=== PATIENT | female | born 1990 | race Caucasian/White ===

== ENCOUNTER 2017-09-11 09:08 | Inpatient (IN) ==
[2017-09-11] MEDS ORDERED: Piperacillin/Tazobactam 3.375 GM in D5% in Water (Mini-Bag+) 100 ML IVPB SCH (12:00)
[2017-09-11] MEDS ORDERED: Vancomycin 0 MG in D5% in Water 250 ML IVPB SCH (12:00)
--- NOTE | 2017-09-11 12:06 | Internal Med History&Physical ---
Date of Encounter: 09/11/17 Time of Encounter: 12:03 Assessment and Plan (1) Periorbital cellulitis of right eye Current visit: Yes Status: Acute Imaging shows no affection of the orbit. Vision is intact. on examination there is no crusting and patient can count fingers. Continue vancomycin and zosyn. Also will give decadron 10 mg q 8 because of degree of edema. Discussed with patient in case any visual symptoms or signs of occular infection she will transferred. Currently no signs of endophthalmitis. (2) HCV (hepatitis C virus) Current visit: Yes Status: Acute Due to IV drug abuse. Qualifiers: Qualified Code(s): B19.20 - Unspecified viral hepatitis C without hepatic coma (3) IVDA (intravenous drug abuse) complicating Current visit: Yes Status: Acute Injects heroin twice weekly (4) Cellulitis and abscess of face Current visit: No Status: Acute Vanc zosyn and decadron. Discussed with ENT because of abscess formation on CT. Internal Medicine - H&P: HPI Chief complaint: cheeck pain and swelling History of present illness: Ms. Dee Herron is a 26 year old female presents to the emergency room yesterday with the main complain of cheek pain and swelling. 2 days ago patient started noticing a pimple on her right cheek. She presented to [facility] emergency room and this was incised and drained and she was discharged home on Bactrim and Keflex which she started yesterday. She continues to notice progressive increase in redness swelling of the right cheek which started involving her right eye which is currently closed from the degree of edema. She still able to see with active opening of her eye at least finger counting. There is no obvious crusting in the sclera. No eye pain or proptosis. Patient presented again to [facility] emergency room yesterday and was hospitalized started on IV antibiotics. Her facial swelling has not improved so she was transferred to our facility. Past Med Surg Social Fam HX - Past Medical History Medical history: no medical history Psychiatric history: no psych history - Past Surgical History Surgical History: - Social History Smoking Status: Current every day smoker Smokeless Tobacco Status: No Alcohol use: occasionally Drug use: opiates, methamphetamine, IV Drug Use - Family History Mother Hx Family Respiratory Disorders: Yes (Asthma) Father Hx Family Cardiac Disorders: Yes (HTN) Internal Medicine - H&P: Meds Cephalexin [Keflex] 500 mg PO TID #21 capsule 09/09/17 [Rx] HYDROcodone/Acet 5/325 mg [[place] 5-325 mg] 1 tab PO Q4H PRN #12 tab 09/09/17 [Rx ] Sulfamethoxazole/Trimeth DS [Bactrim DS] 1 each PO BID #14 tablet 09/09/17 [Rx] 3 Allergy/AdvReac Type Severity Reaction Status Date / Time No Known Allergies Allergy Verified 09/10/17 23:11 All Systems PM: A 10-system review of systems was performed and is negative for pertinent findings except as documented above in the HPI. Review of systems: 10 point review of systems is negative except for HPI - Constitutional Vitals: Temp Pulse Resp BP Pulse Ox 98.3 F 100 16 132/88 97 09/11/17 11:52 09/11/17 11:52 09/11/17 11:52 09/11/17 11:52 09/11/17 11:52 Exam: Gen.: patient is alert oriented times 3 not in distress. Head and neck: Swlling redness, warmth tenderness in the right maxillary and periorbital area Eye: Swollen eye lids, no crusting. Intact vision. BP 132/88, pulse 100, 97% on RA
[2017-09-11 12:26] LABS: Basophils % 0.3 %; Eosinophils # 0.2 K/mcL (0.0-0.6); Eosinophils % 1.7 %; Hemoglobin 11.7 g/dL (11.5-15.4); Immature Granulocytes % 0.5 % (0-4); Lymphocytes # 2.6 K/mcL (0.6-4.6); Lymphocytes % 22.2 %; Mean Corpuscular HGB Conc 31.6 g/dL (31.6-35.5); Mean Corpuscular Hemoglobin 28.7 pg (28.0-33.3); Mean Corpuscular Volume 90.9 fL (83.0-100.0); Mean Platelet Volume 9.9 fL (9.4-12.4); Monocytes # 1.3 K/mcL (0.0-1.3); Monocytes % 10.7 %; Neutrophils # 7.6 K/mcL (1.6-8.9); Platelet Count 258 K/mcL (140-400); Red Blood Count 4.07 M/mcL (3.82-4.97); Red Cell Distribution Width 13.4 % (11.5-14.5); Segmented Neutrophils % 64.6 %
[2017-09-11] MEDS ORDERED: Lidocaine/EPI 1:100k 1% 20 ML VIAL INFILT ONE (12:47)
[2017-09-11 12:50] LABS: Alanine Aminotransferase 7 Units/L (7-52); Albumin 3.7 g/dL (3.5-5.7); Albumin/Globulin Ratio 1.1 (1.1-2.2); Alkaline Phosphatase 57 Units/L (34-104); Aspartate Amino Transferase 9 Units/L (13-39); BUN/Creatinine Ratio 11 (6-26); Bilirubin,Total 0.3 mg/dL (0.3-1.0); Blood Urea Nitrogen 6 mg/dL (6-20); C-Reactive Protein 54 mg/L (Less than 10); Calcium 9.1 mg/dL (8.6-10.3); Carbon Dioxide 26 mEq/L (23-29); Chloride 105 mEq/L (98-107); Globulin 3.5 g/dL (2.4-3.5); Glucose 104 mg/dL (70-105); Osmolality,Calculated 282 (280-300); Sodium 137 mEq/L (136-145); Total Protein 7.2 g/dL (6.4-8.9); eGFR For African Americans > 60 (> 60); eGFR For Non-African Americans > 60 (> 60)
[2017-09-11] MEDS ORDERED: Vancomycin 750 MG in D5% in Water 250 ML IVPB SCH (13:00)
[2017-09-11] MEDS: Dexamethasone 10 MG/ML VIAL IVP SCH ×2 (13:58→22:17)
[2017-09-11] MEDS: 0.9 % Sodium Chloride 1,000 ML IVC SCH (13:58)
[2017-09-11] MEDS: *HR* Morphine 2 MG/ML SYRINGE IVP PRN ×2 (14:02→22:18)
[2017-09-11] MEDS: Vancomycin 1,000 MG in D5% in Water 250 ML IVPB SCH (14:05)
[2017-09-11] MEDS: Piperacillin/Tazobactam 3.375 GM/200 ML BAG IVPB SCH ×2 (14:10→22:17)
--- NOTE | 2017-09-11 14:27 | ENT - Consult Note ---
Date of Encounter: 09/11/17 Time of Encounter: 14:24 Assessment and Plan (1) Facial abscess Current Visit: No Status: Acute s/p bedside I&D today, tolerated well, no complications. Will remove packing over next few days. Agree with IV abx and steroids Cultures pending Gentamicin ointment topical added. (2) Periorbital cellulitis of right eye Current Visit: Yes Status: Acute as above, will likely improve once IV therapies have a chance to work. No concerning intraocular eye involvement at this time. History of Present Illness Consult date: 09/11/17 Reason for ENT Consult: other (facial abscess) History of present illness: Pt is a 26 yo female IVDU who reports a right malar acne site that turned into a facial swelling over the last few days. She was treated with po bactrim and I& D at [facility] with subsequent progression of her swelling to the point that she now has periorbital edema closing her eye. She denies vision changes once the eye is opened and she has FROM of EOMs. Denies recent sinus infection or fever. Admits to prior cellulitis on her arm before, denies MRSA infections. Past Med Surg Social Fam HX - Past Medical History Medical history: no medical history Psychiatric history: no psych history - Past Surgical History Surgical History: - Social History Smoking Status: Current every day smoker Smokeless Tobacco Status: No Alcohol use: occasionally Drug use: opiates, methamphetamine, IV Drug Use - Family History Mother Hx Family Respiratory Disorders: Yes (Asthma) Father Hx Family Cardiac Disorders: Yes (HTN) Medications and Allergies Cephalexin [Keflex] 500 mg PO TID #21 capsule 09/09/17 [Rx] HYDROcodone/Acet 5/325 mg [[place] 5-325 mg] 1 tab PO Q4H PRN #12 tab 09/09/17 [Rx ] Sulfamethoxazole/Trimeth DS [Bactrim DS] 1 each PO BID #14 tablet 09/09/17 [Rx] 3 Allergy/AdvReac Type Severity Reaction Status Date / Time No Known Allergies Allergy Verified 09/10/17 23:11 ENT - ROS All systems PM: reviewed and no additional remarkable complaints except as stated ENT Exam Initial Vital Signs Temp Pulse Resp BP Pulse Ox 98.3 F 100 16 132/88 97 09/11/17 11:52 09/11/17 11:52 09/11/17 11:52 09/11/17 11:52 09/11/17 11:52 - General physical appearance well developed, well nourished, no distress - Eyes other (right eye periobital edema closing the eye. EOMS intact. Vision intact. ) - ENT normal pinna, normal nares, normal mucosa, Other (right facial malar swelling with purulent drainage from site of prior I&D with surrounding induration. cellulitis extends to eye. ) - Neck no masses, no bruits, no lymphadectomy - Respiratory normal expansion, normal respiratory effort - Abdomen Abdomen: no distended - Neurologic CN 2-12 grossly intact, normal coordination, normal sensation - Musculoskeletal normal gait, normal posture - Psychiatric oriented to time, oriented to person, oriented to place - Additional Findings Procedure note: Procedure: Facial abscess incision and drainage Preop dx: right facial abscess Postop dx: same Anesthesia: 2ml of 1% lidocaine, with 1:100,000 epi Procedure: Consent was obtained, the area was cleaned with betadine. Local anesthestic was injected with a 25g needle. I used a hemostat to open through the site of prior I&D. Purulence was quickly identified which I cultured. The loculations were broken up with a hemostat. 1/2'' packing gauze was then placed into the abcess cavity and a clean dressing was placed. She tolerated this well and there were no complications. Exam Initial Vital Signs Temp Pulse Resp BP Pulse Ox 98.3 F 100 16 132/88 97 09/11/17 11:52 09/11/17 11:52 09/11/17 11:52 09/11/17 11:52 09/11/17 11:52 Results - Labs 09/11/17 12:15 09/11/17 12:15 Abnormal lab results WBC 11.8 K/mcL (4.3-11.1) H 09/11/17 12:15 ESR 51 mm/hr (0-15) H 09/11/17 12:15 Creatinine 0.56 mg/dL (0.60-1.20) L 09/11/17 12:15 AST 9 Units/L (13-39) L 09/11/17 12:15 C-Reactive Protein 54 mg/L (Less than 10) H 09/11/17 12:15 Diabetes panel 09/11/17 Range/Units 12:15 Sodium 137 (136-145) mEq/L Potassium 4.0 D (3.5-5.1) mEq/L Chloride 105 (98-107) mEq/L Carbon Dioxide 26 (23-29) mEq/L BUN 6 (6-20) mg/dL Creatinine 0.56 L (0.60-1.20) mg/dL Glucose 104 (70-105) mg/dL Calcium 9.1 (8.6-10.3) mg/dL AST 9 L (13-39) Units/L ALT 7 (7-52) Units/L Alkaline Phosphatase 57 (34-104) Units/L Albumin 3.7 (3.5-5.7) g/dL Calcium panel 09/11/17 Range/Units 12:15 Calcium 9.1 (8.6-10.3) mg/dL Albumin 3.7 (3.5-5.7) g/dL Pituitary panel 09/11/17 Range/Units 12:15 Sodium 137 (136-145) mEq/L Potassium 4.0 D (3.5-5.1) mEq/L Chloride 105 (98-107) mEq/L Carbon Dioxide 26 (23-29) mEq/L BUN 6 (6-20) mg/dL Creatinine 0.56 L (0.60-1.20) mg/dL Glucose 104 (70-105) mg/dL Calcium 9.1 (8.6-10.3) mg/dL Adrenal panel 09/11/17 Range/Units 12:15 Sodium 137 (136-145) mEq/L Potassium 4.0 D (3.5-5.1) mEq/L Chloride 105 (98-107) mEq/L Carbon Dioxide 26 (23-29) mEq/L BUN 6 (6-20) mg/dL Creatinine 0.56 L (0.60-1.20) mg/dL Glucose 104 (70-105) mg/dL Calcium 9.1 (8.6-10.3) mg/dL Total Bilirubin 0.3 (0.3-1.0) mg/dL AST 9 L (13-39) Units/L ALT 7 (7-52) Units/L Alkaline Phosphatase 57 (34-104) Units/L Albumin 3.7 (3.5-5.7) g/dL All other labs normal. Consult Discharge Plan - Plan Referrals: NONE,PCP [Primary Care Provider] -
[2017-09-11] MEDS ORDERED: Aminoglycoside Consult 1 EACH MC ONE (14:49)
[2017-09-11] MEDS: Gentamicin Oint 15 GM TUBE TP SCH (22:18)
[2017-09-12] MEDS: Vancomycin 1,000 MG in D5% in Water 250 ML IVPB SCH (02:28)
[2017-09-12] MEDS: 0.9 % Sodium Chloride 1,000 ML IVC SCH (02:28)
[2017-09-12] MEDS: Piperacillin/Tazobactam 3.375 GM/200 ML BAG IVPB SCH (04:58)
[2017-09-12] MEDS: Dexamethasone 10 MG/ML VIAL IVP SCH (04:59)
[2017-09-12] MEDS: Gentamicin Oint 15 GM TUBE TP SCH (09:42)
--- NOTE | 2017-09-12 11:18 | ENT - Progress Note ---
Date of Encounter: 09/12/17 Time of Encounter: 11:16 - Assessment and Plan (1) Facial abscess Current Visit: No Status: Acute s/p bedside I&D POD#1, improved exam today. Facial swelling and induration present but improved, better eye opening today. No visual complaints. Partial packing removal today She needs at least one more day of IV therapies and we can remove the rest of her packing tomorrow. Cultures pending Continue Gentamicin ointment topical added. She is an IVDU with social concerns of her living situation. She is at high risk to leave AMA. If she does decide to leave AMA, recommend Bactrim DS bid or Clindamyin 600 tid po x 14 days. She says she has some bactrim and Keflex at home, which is reasonable pending cultures are not back. She can continue topical gentamicin at home too. (2) Periorbital cellulitis of right eye Current Visit: Yes Status: Acute periorbital edema still present but improved. Continue IV therapies Subjective Patient reports: no new complaints, pain is less, other (Pt reports improved facial swelling, better eye opening, decreased facial pain and tightness. She still has moderate periorbital swelling but can open her eye much better today and has no visual complaints. ) Objective Initial Vital Signs Temp Pulse Resp BP Pulse Ox 98.3 F 100 16 132/88 97 09/11/17 11:52 09/11/17 11:52 09/11/17 11:52 09/11/17 11:52 09/11/17 11:52 - General physical appearance well developed, well nourished, no distress - Eyes other (improved eye opening, but still with moderate periorbital edema. FROM of EOMs, vision is intact, no diplopia) - ENT normal pinna, normal nares, normal mucosa, Other (improved right malar swelling and induration, but still present. Partial packing removed with purulence still within the wound.) - Neck no masses, no bruits, no lymphadectomy - Respiratory normal expansion, normal respiratory effort - Abdomen no distended - Integumentary no rash, no growths - Neurologic CN 2-12 grossly intact, normal coordination, normal sensation - Musculoskeletal normal gait, normal posture - Psychiatric oriented to time, oriented to person, oriented to place - Labs 09/11/17 12:15 09/11/17 12:15 Diabetes panel 09/11/17 Range/Units 12:15 Sodium 137 (136-145) mEq/L Potassium 4.0 D (3.5-5.1) mEq/L Chloride 105 (98-107) mEq/L Carbon Dioxide 26 (23-29) mEq/L BUN 6 (6-20) mg/dL Creatinine 0.56 L (0.60-1.20) mg/dL Glucose 104 (70-105) mg/dL Calcium 9.1 (8.6-10.3) mg/dL AST 9 L (13-39) Units/L ALT 7 (7-52) Units/L Alkaline Phosphatase 57 (34-104) Units/L Albumin 3.7 (3.5-5.7) g/dL Calcium panel 09/11/17 Range/Units 12:15 Calcium 9.1 (8.6-10.3) mg/dL Albumin 3.7 (3.5-5.7) g/dL Pituitary panel 09/11/17 Range/Units 12:15 Sodium 137 (136-145) mEq/L Potassium 4.0 D (3.5-5.1) mEq/L Chloride 105 (98-107) mEq/L Carbon Dioxide 26 (23-29) mEq/L BUN 6 (6-20) mg/dL Creatinine 0.56 L (0.60-1.20) mg/dL Glucose 104 (70-105) mg/dL Calcium 9.1 (8.6-10.3) mg/dL Adrenal panel 09/11/17 Range/Units 12:15 Sodium 137 (136-145) mEq/L Potassium 4.0 D (3.5-5.1) mEq/L Chloride 105 (98-107) mEq/L Carbon Dioxide 26 (23-29) mEq/L BUN 6 (6-20) mg/dL Creatinine 0.56 L (0.60-1.20) mg/dL Glucose 104 (70-105) mg/dL Calcium 9.1 (8.6-10.3) mg/dL Total Bilirubin 0.3 (0.3-1.0) mg/dL AST 9 L (13-39) Units/L ALT 7 (7-52) Units/L Alkaline Phosphatase 57 (34-104) Units/L Albumin 3.7 (3.5-5.7) g/dL Consult Discharge Plan - Plan Referrals: NONE,PCP [Primary Care Provider] -
[2017-09-12 11:44] VITALS: BP 130/86
--- NOTE | 2017-09-12 12:14 | Discharge Summary ---
<Rico Her - Last Filed: 09/12/17 12:10> Date of Encounter: 09/12/17 Time of Encounter: 12:10 - Discharge Diagnosis (1) Facial abscess Priority: Primary Status: Acute (2) Periorbital cellulitis of right eye Priority: Secondary Status: Acute (3) HCV (hepatitis C virus) Priority: Secondary Status: Acute Qualifiers: Viral hepatitis chronicity: chronic Hepatic coma status: without hepatic coma Qualified Code(s): B18.2 - Chronic viral hepatitis C - Discharge Medications Prescriptions: Gentamicin Oint [Garamycin] 1 appl TP BID #1 tube predniSONE [PredniSONE] 20 mg PO DAILY #5 tablet Sulfamethoxazole/Trimeth DS [Bactrim DS] 1 each PO BID #28 tablet Home Medications: HYDROcodone/Acet 5/325 mg [[place] 5-325 mg] 1 tab PO Q4H PRN #12 tab 09/09/17 [Rx ] Gentamicin Oint [Garamycin] 1 appl TP BID #1 tube 09/12/17 [Rx] Sulfamethoxazole/Trimeth DS [Bactrim DS] 1 each PO BID #28 tablet 09/12/17 [Rx] predniSONE [PredniSONE] 20 mg PO DAILY #5 tablet 09/12/17 [Rx] Allergies/Adverse Reactions: 3 Allergy/AdvReac Type Severity Reaction Status Date / Time No Known Allergies Allergy Verified 09/10/17 23:11 Date of admission: 09/11/17 11:48 Primary care physician: PCP NONE Consults: 09/11/17 11:48 Consult to ENT [CONS] Routine Consulting Provider: ENT Cornelius Reason for Consult: cheek cellulitis with abscess. periorbital edema Call Completed: Yes Discharging clinician: Rico Her Anticipated date of discharge: 09/12/17 - Patient Status Disposition: Left Against Medical Advice Condition: Fair Functional capacity at discharge: independent ambulation Overall status at discharge: patient is not back to baseline - Discharge Instructions Instructions: Sulfamethoxazole/Trimethoprim (By mouth), Prednisone (By mouth), Cellulitis (DC) Follow Up With: Henry Bermudez DO [Partnered Physician] - (please call to make a follow up appointment within 3-4 days. ) NONE,PCP [Primary Care Provider] - Additional Instructions: Please follow up with your Primary care physician after leaving. We will give you antibiotics, steroids, and antibiotic ointment. We priced checked these at [facility] and bactrim (antibiotic) will cost $4.00. It is very important that you continue taking these. - Diet and Activity Activity: increase activity as tolerated, resume usual activities as tolerated Diet: advance to your usual diet Hospital course: Ms. Dee Herron is a 26 year old female with past medical history of IV drug use , hepatitis C presents to emergency department from [place] with a chief complaint of right facial swelling. She states that she presented to [place] on morning, 09/09/17, and the emergency room physician performed an irrigation and drainage of the right maxillary region and sent her home on Bactrim. She stated that Wednesday morning when she woke up the swelling, erythema was worse so she presented to this emergency room. ENT was consulted during admission and performed bedside irrigation and drainage. Vital signs on presentation significant for mild tachycardia at 100. Labs significant for mild leukocytosis at 11.8, ESR of 51. Patient reports improved pain, swelling. She does note some discharge when she moves her bandage. ENT recommended additional days of IV antibiotics for patient is electing to leave AGAINST MEDICAL ADVICE as afternoon due to social issues at home. She states that she has to move out of her apartment by 3 PM this afternoon. Patient was cautioned on the risks of leaving quitting worsening infection, damage to adjacent structures, blindness, . She states that she will present to the emergency department again if the symptoms worsen. He was sent home with prescription of gentamicin ointment, Bactrim for a total of 14 days, prednisone 20 mg 5 days. She was instructed to follow up with her primary care physician upon discharge. - Time Spent with Patient Total time spent providing and/or coordinating discharge services: - Constitutional Vitals: Temp Pulse Resp BP Pulse Ox 98.2 F 89 15 130/86 98 09/12/17 11:41 09/12/17 11:41 09/12/17 11:41 09/12/17 11:41 09/12/17 11:41 Exam: Gen.: Vitals noted. No acute distress. AAOx3 HEENT: PERRL/EOMI, oropharynx clear, Normocephalic, atraumatic. Right sided facial edema and erythema around maxillary. No obvious discharge. Swelling of left periorbital tissue. No vision deficits. Cardiac: RRR, no murmur, +S1/S2 Pulmonary: CTA bilaterally, no wheezes, rales or rhonchi, equal chest expansion Abdomen: soft, nontender, BS noted, no guarding MSK: ROM intact, no joint swelling noted Extremities: no BLE edema, nontender calf, no cyanosis or clubbing Neuro: A&Ox3, moves all extremities, no focal deficits Psych: Appropriate mood and behavior <RebelDez Alcantar - Last Filed: 09/12/17 18:45> Date of Encounter: 09/12/17 - Discharge Diagnosis (1) Periorbital cellulitis of right eye Priority: Primary Status: Acute (2) Facial abscess Status: Acute (3) HCV (hepatitis C virus) Status: Acute Qualifiers: Viral hepatitis chronicity: chronic Hepatic coma status: without hepatic coma Qualified Code(s): B18.2 - Chronic viral hepatitis C Date of admission: 09/11/17 11:48 Primary care physician: PCP NONE Consults: 09/11/17 11:48 Consult to ENT [CONS] Routine Consulting Provider: ENT Kylie Reason for Consult: cheek cellulitis with abscess. periorbital edema Call Completed: Yes Hospital course: Ms. Dee Herron is a 26 year old female - Time Spent with Patient Total time spent providing and/or coordinating discharge services: 28min - Constitutional Vitals: Temp Pulse Resp BP Pulse Ox 98.2 F 89 15 130/86 98 09/12/17 11:41 09/12/17 11:41 09/12/17 11:41 09/12/17 11:41 09/12/17 11:41 - Attending Attestation I examined this patient and my medical decision-making was reviewed with the Resident Physician on 09/12/17. I agree with the documented findings, disposition and treatment plan as described except to the extent set forth below. Ms Dee Herron has been admitted for R facial abscess and cellulitis. She is s/ p I&D. She wants to leave AMA today despite being told of the risks of leaving and not continuing IV abx. Exam Alert. Comfortable Swelling R face note. Heart reg No wheeze Plan D/C AMA today Bactrim and Prednisone scripts.
== END 2017-09-12 14:50 | disposition left against medical advice (07) | DRG 603 ==
LOC: 2NENU
PROVIDERS: ADMIT Hospitalist; ATTEND Internal Medicine